=== PATIENT | male | born 1930 | race Caucasian/White ===

== ENCOUNTER 2018-09-16 11:07 | Emergency (ER) | payer MEDICARE ==
[2018-09-16] MEDS ORDERED: IPRATROPIUM-ALBUTEROL 3 ML NEB INHALATION STA (11:45)
--- NOTE | 2018-09-16 11:45 | ED ---
General Adult HPI - General Chief complaint: Shortness of Breath Stated complaint: cough/poss pneumonia Time Seen by Provider: 09/16/18 11:10 Source: patient, family, RN notes reviewed Limitations: no limitations - History of Present Illness Initial comments: This is an 88-year-old male with past medical history significant for pneumonia in the past. Patient states he comes in today because he is coughing even though his a dry cough is been intermittent since . Patient states he's been on a couple different antibiotics in the last one was a month ago. Patient states he has not had a fever he is not short of breath he is not having any chest pain. Patient states he just coughs occasionally throughout the day. Patient denies any swelling is legs patient denies any calf tenderness. Patient denies any exertional problems. Patient denies any palpitations. Patient denies any abdominal pain. Patient denies nausea vomiting diarrhea. - Related Data Home Medications Medication Instructions Recorded Confirmed Advil Liquid Gels 1 cap PO BID 09/16/18 09/16/18 Cholecalciferol [Vitamin D3 (25 1,000 unit PO DAILY 09/16/18 09/16/18 Mcg = 1000 Iu)] Cinnamon Bark [Cinnamon] 1,000 mg PO DAILY 09/16/18 09/16/18 Cranberry 168mg 168 mg PO DAILY 09/16/18 09/16/18 Echinacea 750mg 1 tab PO BID 09/16/18 09/16/18 Latanoprost [Xalatan 0.005%] 1 drop BOTH EYES HS 09/16/18 09/16/18 Lecithin 1200mg 1,200 mg PO DAILY 09/16/18 09/16/18 Lisinopril-Hctz 20-12.5 mg 1 tab PO BID 09/16/18 09/16/18 [Zestoretic 20-12.5] Milk Thistle 150 mg PO DAILY 09/16/18 09/16/18 Multivitamins, Thera [Multivitamin 1 tab PO DAILY 09/16/18 09/16/18 (formulary)] Rodman Terry 1 tab PO DAILY 09/16/18 09/16/18 [place] 450mg 450 mg PO DAILY 09/16/18 09/16/18 Simvastatin [Zocor] 20 mg PO DAILY 09/16/18 09/16/18 Spirulina 1 tab PO DAILY 09/16/18 09/16/18 Turmeric Root Extract [Turmeric] 500 mg PO DAILY 09/16/18 09/16/18 Ubidecarenone [Co Q-10] 100 mg PO DAILY 09/16/18 09/16/18 Zinc 50 mg PO DAILY 09/16/18 09/16/18 glyBURIDE [Diabeta] 1.25 mg PO AC-BRKFST 09/16/18 09/16/18 metFORMIN HCL [Glucophage] 1,000 mg PO DAILY 09/16/18 09/16/18 metFORMIN HCL [Glucophage] 1,500 mg PO HS 09/16/18 09/16/18 Previous Rx's Medication Instructions Recorded Albuterol Inhaler [Ventolin Hfa 1 - 2 puff INHALATION Q6HR PRN #2 09/16/18 Inhaler] puff Allergies Allergy/AdvReac Type Severity Reaction Status Date / Time moxifloxacin [From Avelox] Allergy Unknown Verified 09/16/18 11:48 Penicillins Allergy Unknown Verified 09/16/18 11:48 Review of Systems ROS Statement: Those systems with pertinent positive or pertinent negative responses have been documented in the HPI. ROS Other: All systems not noted in ROS Statement are negative. Past Medical History Past Medical History: Diabetes Mellitus, Hypertension History of Any Multi-Drug Resistant Organisms: None Reported Past Surgical History: Back Surgery, Hernia Repair Past Psychological History: No Psychological Hx Reported Smoking Status: Former smoker Past Alcohol Use History: Occasional Past Drug Use History: None Reported General Exam - General Exam Comments Initial Comments: GENERAL: Patient is well-developed and well-nourished. Patient is nontoxic and well- hydrated and is in mild distress. ENT: Neck is soft and supple. No significant lymphadenopathy is noted. Oropharynx is clear. Moist mucous membranes. Neck has full range of motion without eliciting any pain. EYES: The sclera were anicteric and conjunctiva were pink and moist. Extraocular movements were intact and pupils were equal round and reactive to light. Eyelids were unremarkable. PULMONARY: Unlabored respirations. Good breath sounds bilaterally. No audible rales rhonc hi or wheezing was noted. CARDIOVASCULAR: There is a regular rate and rhythm without any murmurs gallops or rubs. ABDOMEN: Soft and nontender with normal bowel sounds. No palpable organomegaly was noted. There is no palpable pulsatile mass. SKIN: Skin is clear with no lesions or rashes and otherwise unremarkable. NEUROLOGIC: Patient is alert and oriented x3. Cranial nerves II through XII are grossly intact. Motor and sensory are also intact. Normal speech, volume and content. Symmetrical smile. MUSCULOSKELETAL: Normal extremities with adequate strength and full range of motion. No lower extremity swelling or edema. No calf tenderness. LYMPHATICS: No significant lymphadenopathy is noted PSYCHIATRIC: Normal psychiatric evaluation. Limitations: no limitations Course Vital Signs 09/16/18 09/16/18 09/16/18 11:11 11:40 11:48 Temperature 97.4 F L Pulse Rate 84 60 Respiratory 20 18 Rate Blood Pressure 154/65 O2 Sat by Pulse 97 Oximetry 09/16/18 11:59 Temperature Pulse Rate 64 Respiratory Rate Blood Pressure O2 Sat by Pulse Oximetry Medical Decision Making - Medical Decision Making Chest x-ray shows no acute abnormality. Patient to get breathing treatments and after there was no wheezes or crackles heard. - Lab Data Result diagrams: 09/16/18 11:45 Lab Results 09/16/18 Range/Units 11:45 WBC 6.9 (3.8-10.6) k/uL RBC 4.10 L (4.30-5.90) m/uL Hgb 13.3 (13.0-17.5) gm/dL Hct 39.6 (39.0-53.0) % MCV 96.6 (80.0-100.0) fL MCH 32.5 (25.0-35.0) pg MCHC 33.7 (31.0-37.0) g/dL RDW 13.2 (11.5-15.5) % Plt Count 280 (150-450) k/uL Neutrophils % 45 % Lymphocytes % 43 % Monocytes % 6 % Eosinophils % 4 % Basophils % 1 % Neutrophils # 3.1 (1.3-7.7) k/uL Lymphocytes # 2.9 (1.0-4.8) k/uL Monocytes # 0.4 (0-1.0) k/uL Eosinophils # 0.2 (0-0.7) k/uL Basophils # 0.1 (0-0.2) k/uL Disposition Clinical Impression: Upper respiratory infection Disposition: HOME SELF-CARE Condition: Good Instructions (If sedation given, give patient instructions): Upper Respiratory Infection (ED) Prescriptions: Albuterol Inhaler [Ventolin Hfa Inhaler] 1 - 2 puff INHALATION Q6HR PRN #2 puff PRN Reason: Difficulty breathing Is patient prescribed a controlled substance at d/c from ED?: No Referrals: Nonstaff,Physician [Primary Care Provider] - 1-2 days Time of Disposition: 12:39
--- NOTE | 2018-09-16 12:12 | XR ---
EXAMINATION TYPE: XR chest 2V DATE OF EXAM: 09/16/2018 COMPARISON: NONE HISTORY: Difficulty breathing TECHNIQUE: Frontal and lateral views of the chest are obtained. FINDINGS: There is no focal air space opacity, pleural effusion, or pneumothorax seen. Linear left midlung atelectasis is seen. The cardiac silhouette size is within normal limits. The osseous struc tures are intact. Moderate multilevel degenerative changes of the spine are present. IMPRESSION: Left midlung platelike atelectasis. Otherwise no acute cardiopulmonary process.
[2018-09-16 12:13] LABS: Basophils # (A) 0.1 k/uL (0-0.2); Basophils % (A) 1 %; Eosinophils # (A) 0.2 k/uL (0-0.7); Eosinophils % (A) 4 %; HCT 39.6 % (39.0-53.0); HGB 13.3 gm/dL (13.0-17.5); Lymphocytes # (A) 2.9 k/uL (1.0-4.8); Lymphocytes % (A) 43 %; MCH 32.5 pg (25.0-35.0); MCHC 33.7 g/dL (31.0-37.0); MCV 96.6 fL (80.0-100.0); Mean Platelet Volume 7.7; Monocytes # (A) 0.4 k/uL (0-1.0); Monocytes % (A) 6 %; Neutrophils # (A) 3.1 k/uL (1.3-7.7); Neutrophils % (A) 45 %; Platelet Count 280 k/uL (150-450); RDW 13.2 % (11.5-15.5); WBC 6.9 k/uL (3.8-10.6)
[2018-09-16 13:07] VITALS: BP 100/75; PULSE 70; RESP 16; TEMP 97.9
== END 2018-09-16 13:00 | disposition home or self-care (01) ==
LOC: EC 11:07
DX: J06.9 Acute upper respiratory infection, unspecified (principal); E11.9 Type 2 diabetes mellitus without complications; I10 Essential (primary) hypertension; Z87.891 Personal history of nicotine dependence; Z79.84 Long term (current) use of oral hypoglycemic drugs; Z79.899 Other long term (current) drug therapy; Z88.0 Allergy status to penicillin; Z88.1 Allergy status to other antibiotic agents
CPT/HCPCS: 36415; 71046; 85025; 94640; 99285